=== PATIENT | male | born 1965 | race Caucasian/White ===

== ENCOUNTER 2020-07-19 04:11 | Emergency (ER) | payer OTHER ==
[~2020-07-19] VITALS: Ht 175.3 cm; Wt 95.4 kg
[2020-07-19 04:11] VITALS: BP 155/89
--- NOTE | 2020-07-19 04:53 | PHYS DOC ---
Past History Past Medical History: Diabetes, High Cholesterol, Other Additional Past Medical Histor: pvc (SENA ALEGRIA MD) Past Surgical History: No Surgical History (SENA ALEGRIA MD) Alcohol Use: Occasionally (ESNA ALEGRIA MD) Smoking: Non-smoker Alcohol Use: Occasionally Drug Use: None (ERWIN MEDINA DO) General Adult EDM: Chief Complaint: NAUSEA/VOMITING/DIARRHEA HPI: HPI: Patient is a 54-year-old male coming in for palpitations, tachycardia, nausea starting at 3:30 AM. Patient states he woke from sleep with nausea and counted his pulse rate and states it was about 160. Denies any chest pain or difficulty breathing. Patient denies any history of sleep apnea but states he does snore. Denies any other symptoms such as fever, vomiting, diarrhea, cough, or lower extreme edema.. Has a history of insulin-dependent diabetes, denies hyper tension or heart disease history. Denies caffeine use. States he was diagnosed with PVCs about 10 years ago that resolved and is started coming back about 2 or 3 weeks ago. Patient has had recent stressors as his June 10. Denies any history of tobacco, alcohol, or drug use. Denies any significant family history of cardiac disease. (SENA ALEGRIA MD) Review of Systems: Review of Systems: Constitutional: Denies fever or chills Eyes: Denies change in visual acuity HENT: Denies nasal congestion or sore throat Respiratory: Denies cough or shortness of breath Cardiovascular: Denies chest pain or edema GI: Denies abdominal pain, nausea, vomiting, bloody stools or diarrhea : Denies dysuria Musculoskeletal: Denies back pain or joint pain Integument: Denies rash Neurologic: Denies headache, focal weakness or sensory changes Endocrine: Denies polyuria or polydipsia Lymphatic: Denies swollen glands Psychiatric: Denies depression or anxiety (SENA ALEGRIA MD) Allergies: Allergies: Allergies Coded Allergies Type Severity Reaction Last Updated Verified No Known Drug Allergies 07/19/20 No (SENA ALEGRIA MD) Physical Exam: PE: Constitutional: Well developed, well nourished, no acute distress, non-toxic appearance. [] HENT: Normocephalic, atraumatic, bilateral external ears normal, nose normal. [] Eyes: PERRLA, conjunctiva normal, no discharge. [] Neck: No rigidity, supple, no stridor. [] Cardiovascular: Regular rate and rhythm, brisk cap refill [] Lungs & Thorax: Non labored symmetric respirations, no tachypnea or respiratory distress [] Abdomen: Soft, nondistended. Skin: Warm, dry, no erythema, no rash. [] Back: Unremarkable Extremities: No deformities, range of motion grossly intact, no lower extremity edema [] Neurologic: Alert and oriented X 3, no focal deficits noted. [] Psychologic: Affect normal, judgement normal, mood normal. [] (SENA ALEGRIA MD) PE: Constitutional: Well developed, well nourished, no acute distress, non-toxic appearance HENT: Normocephalic, atraumatic Eyes: Conjunctiva normal, no discharge Neck: Normal range of motion, supple Lungs & Thorax: No respiratory distress, equal chest rise and fall Abdomen: Soft, no tenderness, no guarding/rebound tenderness/distention Skin: Warm, dry, no erythema, no rash Back: No tenderness, no CVA tenderness Extremities: No tenderness, ROM intact, no edema Neurologic: Alert and oriented X 3, no focal deficits noted Psychologic: Affect normal, judgment normal (ERWIN MEDINA DO) Current Patient Data: Vital Signs: Vital Signs Date Time Temp Pulse Resp B/P (MAP) Pulse Ox O2 Delivery O2 Flow Rate FiO2 07/19/20 04:11 97.8 92 20 155/89 (111) 95 Room Air (SENA ALEGRIA MD) EKG: EKG: Normal sinus rhythm, heart rate [address] elevation depression, no ectopy, no PVCs. Normal axis, normal intervals. T waves unremarkable [] (SENA ALEGRIA MD) EKG: Correction to above: NSR @ "80 bpm" (ERWIN MEDINA DO) Radiology/Procedures: Radiology/Procedures: PROCEDURE: CHEST AP ONLY Study: XR CHEST 1V Indication: Palpitations. Comparison: None recently. Findings: The cardiomediastinal silhouette and davidson are within normal limits. No localized airspace opacity, pleural effusion or pneumothorax. Impression: No acute radiographic abnormality of the chest. [] (SENA ALEGRIA MD) Heart Score: Risk Factors: Risk Factors: DM, Current or recent (<one month) smoker, HTN, HLP, family history of CAD, obesity. Risk Scores: Score 0 - 3: 2.5% MACE over next 6 weeks - Discharge Home Score 4 - 6: 20.3% MACE over next 6 weeks - Admit for Clinical Observation Score 7 - 10: 72.7% MACE over next 6 weeks - Early Invasive Strategies (SENA ALEGRIA MD) HEART Score for Chest Pain: HEART Score for Chest Pain Response (Comments) Value History Slighlty/Non-Suspicious 0 ECG Normal 0 Age >45 - < 65 1 Risk Factors 1 or 2 Risk Factors 1 Troponin < Normal Limit 0 Total 2 Course & Med Decision Making: Course & Med Decision Making No PVCs noted since time patient has been on the monitor. Heart rate has been in the 80s. Pending repeat troponin and CMP at shift change, care transition to Dr. Medina. (SENA ALEGRIA MD) Course & Med Decision Making [id number]-signout received from Dr. Alegria for patient with report of palpitations. EKG stable. Labs obtained and posted to chart. Labs reviewed. Chest x-ray without acute process. Patient pending repeat troponin. Patient seen and evaluated by myself. Repeat troponin within normal limits. Telemetry monitoring appears normal. Patient stable for discharge with outpatient follow-up with PCP/cardiology. Cardiology referral provided. Discussed findings and plan with patient, who acknowledges understanding and agreement. (ERWIN MEDINA DO) Dragon Disclaimer: Meredith Disclaimer: This electronic medical record was generated, in whole or in part, using a voice recognition dictation system. (SENA ALEGRIA MD) Departure Departure: Impression: Primary Impression: Palpitations Additional Impression: Nausea Disposition: 01 DC HOME SELF CARE/HOMELESS Condition: STABLE Referrals: YULIA ELIZONDO MD (PCP) TIANA MOREIRA MD Patient Instructions: Nausea, Adult, [id number], Palpitations, [id number] SENA ALEGRIA MD Jul 19, 2020 04:53 ERWIN MEDINA DO Jul 19, 2020 06:43
--- NOTE | 2020-07-19 05:06 | RAD ---
Study: XR CHEST 1V Indication: Palpitations. Comparison: None recently. Findings: The cardiomediastinal silhouette and davidson are within normal limits. No localized airspace opacity, pl eural effusion or pneumothorax. Impression: No acute radiographic abnormality of the chest. Electronically signed by: AMY DECKER MD (07/19/2020 5:03 AM) [facility]
[2020-07-19 05:35] LABS: GFR 77.6; POTASSIUM 4.2 mmol/L (3.5-5.1)
[2020-07-19 05:35] LABS: BACTERIA,URINE 0 /HPF (0-FEW); BILIRUBIN,URINE NEG (NEG); CLARITY,URINE CLEAR; COLOR,URINE YELLOW; GLUCOSE,URINE NEG (NEG); NITRITE,URINE NEG (NEG); RBC,URINE 0 /HPF (0-2); SQUAMOUS EPITHELIAL CELL,UR OCC /LPF; UROBILINOGEN,URINE 0.2 mg/dL (0.2 mg/dL); WBC,URINE OCC /HPF (0-4)
[2020-07-19 05:48] LABS: ALBUMIN 3.6 g/dL (3.4-5.0); ALBUMIN/GLOBULIN RATIO 1.1 (1.0-1.7); MAGNESIUM 1.6 mg/dL (1.8-2.4); PHOSPHORUS 3.8 mg/dL (2.6-4.7); TOTAL BILIRUBIN 0.3 mg/dL (0.2-1.0); TOTAL PROTEIN 6.9 g/dL (6.4-8.2)
[2020-07-19 06:18] LABS: BASO % 1 % (0-3); EOS # 0.1 x10^3/uL (0.0-0.7); EOS % 2 % (0-3); HEMATOCRIT 40.8 % (39.0-53.0); HEMOGLOBIN 13.4 g/dL (13.0-17.5); LYMPH # 1.4 x10^3/uL (1.0-4.8); LYMPH % 21 % (24-48); MEAN CORPUSCULAR HEMOGLOBIN 30 pg (25-35); MEAN CORPUSCULAR HGB CONC 33 g/dL (31-37); MEAN CORPUSCULAR VOLUME 90 fL (79-100); MONO # 0.6 x10^3/uL (0.0-1.1); MONO % 8 % (0-9); NEUT # 4.5 x10^3uL (1.8-7.7); NEUT % 68 % (31-73); PLATELET COUNT 167 x10^3/uL (140-400); RED BLOOD COUNT 4.53 x10^6/uL (4.30-5.70); RED CELL DISTRIBUTION WIDTH 13.4 % (11.5-14.5); WHITE BLOOD COUNT 6.7 x10^3/uL (4.0-11.0)
--- NOTE | 2020-07-19 06:24 | EKG ---
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
[2020-07-19] MEDS ORDERED: MAGNESIUM CHLORIDE ER 64 MG TABLET.ER PO ONE (07:45)
== END 2020-07-19 07:58 | disposition home or self-care (01) ==
LOC: ER 04:11
DX: R00.2 Palpitations (principal); R00.0 Tachycardia, unspecified; R11.0 Nausea; E11.9 Type 2 diabetes mellitus without complications; E78.00 Pure hypercholesterolemia, unspecified
CPT/HCPCS: 36415; 71045; 80053; 81001; 83735; 83880; 84100; 84484; 85025; 93005; 99285; G0480